=== PATIENT | female | born 1975 | race Caucasian/White ===

== ENCOUNTER 2019-12-16 00:55 | Emergency (ER) | payer OTHER ==
[~2019-12-16] VITALS: Ht 162.6 cm; Wt 86.2 kg
[2019-12-16] MEDS ORDERED: OMEPRAZOLE 20 M20 M1 PO (01:09)
[2019-12-16] MEDS ORDERED: LORCET 5-325 M1 EACH PO (01:10)
[2019-12-16] MEDS ORDERED: BACITRACIN OINT (01:10)
[2019-12-16] MEDS ORDERED: TRIPLE ANTIBIOT28 G2 TOP (01:48)
[2019-12-16] MEDS ORDERED: HYDROCODON-ACE1 EAC7 PO (01:48)
[2019-12-16] MEDS ORDERED: BACITRAYCIN PLU28 GM TOP (01:49)
[2019-12-16 02:00] VITALS: BP 128/89
== END 2019-12-16 02:00 | disposition home or self-care (01) ==
LOC: M.ERS 00:55
DX: T20.27XA Burn of second degree of neck, initial encounter (principal); T21.21XA Burn of second degree of chest wall, initial encounter; T22.212A Burn of second degree of left forearm, initial encounter; T21.22XA Burn of second degree of abdominal wall, initial encounter; T31.11 Burns involving 10-19% of body surface with 10-19% third degree burns; X98.1XXA Assault by hot tap water, initial encounter; Y93.89 Activity, other specified; Y92.89 Other specified places as the place of occurrence of the external cause; Y99.8 Other external cause status